=== PATIENT | female | born 1995 | race Hispanic/Latino ===

== ENCOUNTER 2017-02-15 12:19 | Emergency (ER) | payer BC ==
[~2017-02-15] VITALS: Ht 157.5 cm; Wt 83.9 kg
[2017-02-15] MEDS ORDERED: IBUPROFEN 400 MG TAB PO ONE (12:45)
--- NOTE | 2017-02-15 13:09 | Diagnostic Imaging Report ---
PROCEDURE:X-RAY RIGHT ELBOW, COMPLETE COMPARISON:None. INDICATIONS:POST FALL MONDAY. PAIN/SWELLING TO RIGHT ELBOW FINDINGS:Normal mineralization. No acute, displaced fracture or dislocation. No posterior fat pad elevation. No lytic lesions. 7 mm well-circumscribed, nonaggressive appearing sclerotic lesion in the distal right humerus, likely represents a bone island. Joint spaces are well-preserved. Soft tissues are grossly unremarkable. CONCLUSION: No acute abnormalities.. Avtar Martin M.D. Dictated by: Avtar Martin M.D. on 02/15/2017 at 13:17 Electronically approved by: Avtar Martin M.D. on 02/15/2017 at 13:17
[2017-02-15 15:13] VITALS: BP 125/69
== END 2017-02-15 15:17 | disposition home or self-care (01) ==
LOC: ER 12:19
DX: G89.11 Acute pain due to trauma (principal); S50.01XA Contusion of right elbow, initial encounter; W01.0XXA Fall on same level from slipping, tripping and stumbling without subsequent striking against object, initial encounter; Y92.008 Other place in unspecified non-institutional (private) residence as the place of occurrence of the external cause
CPT/HCPCS: 99283

== ENCOUNTER 2018-04-08 22:55 | Emergency (ER) | payer BC ==
[~2018-04-08] VITALS: Ht 157.5 cm; Wt 95.7 kg
--- OUTSIDE RECORDS SUMMARY | 2018-04-08 22:58 | XMS REPORT ---
Author Author [facility] Address Unknown Phone Unavailable Care Team Providers Care Marker Machine Attendant Name Role Phone Aditya TANG Unavailable Unavailable Problems This patient has no known problems. Allergies, Adverse Reactions, Alerts This patient has no known allergies or adverse reactions. Medications This patient has no known medications. Results Test Description Test Time Test Comments Text Results Atomic Results Result Comments ELBOW RIGHT COMPLETE [place] [id number] [place] [id number] Patient Name: PONCHO TATE MR #: [id number] : 1995 Age/Sex: 22/F Req #: [id number] Adm Physician: Ordered by: MONICA FUNK OUTSIDE PRODUCTION INSPECTOR Report #: [id number] Location: ER Room/Bed: Procedure: [id number] DX/ELBOW RIGHT COMPLETE Exam Date: 02/15/17 Exam Time: 1240 REPORT STATUS: Signed PROCEDURE: X-RAY RIGHT ELBOW, COMPLETE COMPARISON: None. INDICATIONS: POST FALL MONDAY. PAIN/SWELLING TO RIGHT ELBOW FINDINGS: Normal mineralization. No acute, displaced fracture or dislocation. No posterior fat pad elevation. No lytic lesions. 7 mm well-circumscribed, nonaggressive appearing sclerotic lesion in the distal right humerus, likely represents a bone island. Joint spaces are well-preserved. Soft tissues are grossly unremarkable. CONCLUSION: No acute abnormalities.. Angelina Martin M.D. Dictated by: Angelina Martin M.D. on 02/15/2017 at 13:17 Electronically approved by: Angelina Martin M.D. on 02/15/2017 at 13:17 Dictated By: ANGELINA MARTIN MD [id number] Transcribed By: PATRIZIA on 02/15/17 1317 COPY TO: MONICA FUNK NP
--- OUTSIDE RECORDS SUMMARY | 2018-04-08 22:58 | XMS REPORT | Clinical Summary ---
Author Author [facility] Address Unknown Phone Unavailable Care Team Providers Care Secondary History Teacher Name Role Phone Latoya Martinez MD PCP Allergies No Known Allergies Medications End Date Status Medication Sig Dispensed Refills Start Date Active albuterol (ACCUNEB) 2.5 0 mg /3 mL (0.083 %) 6 nebulizer solution Active ibuprofen (ADVIL,MOTRIN) TK 1 T PO TID 0 600 MG tablet FOR 10 DAYS 8 PRN Active Problems No known active problems Encounters Care Team Description Date Type Specialty Latoya Martinez MD Well woman exam (Primary Dx); Screen for STD (sexually transmitted disease); Breast pain, left 03/20/2018 Office Visit Internal Medicine Latoya Martinez MD 03/20/2018 Orders Only Internal Medicine after 04/07/2017 Immunizations Name Dates Previously Given Next Due Influenza, Unspecified 12/04/2017 Family History Medical History Relation Name Comments Cancer Maternal Grandfather Diabetes Maternal Grandfather Hypertension Maternal Grandfather Diabetes Maternal Grandmother Hypertension Maternal Grandmother Hyperlipidemia Mother Ovarian cancer Sister Relation Name Status Comments Maternal Grandfather Maternal Grandmother Mother Sister Social History Date Tobacco Use Types Packs/Day Years Used Never Smoker Smokeless Tobacco: Never Used Alcohol Use Drinks/Week oz/Week Comments No Alcohol Habits Answer Date Recorded How often do you have a drink containing alcohol? Never 03/20/2018 How many drinks containing alcohol do you have on Not asked a typical day when you are drinking? How often do you have six or more drinks on one Not asked occasion? Sex Assigned at Date Recorded Not on file Industry Job Start Date Occupation Not on file Not on file Not on file Travel End Travel History Travel Start No recent travel history available. Last Filed Vital Signs Time Taken Vital Sign Reading 03/20/2018 11:29 AM YARD FOREM[employer] Blood Pressure 124/76 03/20/2018 11:29 AM YARD FOREMAN Pulse 77 03/20/2018 11:29 AM YARD FOREMAN Temperature 36.7 C (98.1 F) - Respiratory Rate - 03/20/2018 11:29 AM YARD FOREMAN Oxygen Saturation 96% - Inhaled Oxygen - Concentration 03/20/2018 11:29 AM YARD FOREMAN Weight 95.7 kg (211 lb) 03/20/2018 11:29 AM YARD FOREMAN Height 157.5 cm (5' 2") 03/20/2018 11:29 AM YARD FOREMAN Body Mass Index 38.59 Plan of Treatment Health Maintenance Due Date Last Done Comments CHLAMYDIA SCREENING 2010 CERVICAL CANCER SCREENING 2015 INFLUENZA VACCINE Completed 12/04/2017 Procedures Comments Procedure Name Priority Date/Time Associated Diagnosis CHLAMYDIA/N. GONORRHOEAE Routine 04/02/2018 RNA, TMA 11:19 AM YARD FOREM[employer] RPR SCREEN Routine 04/02/2018 Screen for STD (sexually 11:19 AM YARD FOREMAN transmitted disease) THYROID STIMULATING Routine 04/02/2018 Well woman exam HORMONE 11:19 AM YARD FOREMAN HIV 1/2 ANTIGEN/ANTIBODY, Routine 04/02/2018 Screen for STD (sexually FOURTH GENERATION W/RFL 11:19 AM YARD FOREMAN transmitted disease) HEPATITIS B SURFACE Routine 04/02/2018 Screen for STD (sexually ANTIGEN 11:19 AM YARD FOREMAN transmitted disease) HEPATITIS C ANTIBODY Routine 04/02/2018 Screen for STD (sexually 11:19 AM YARD FOREMAN transmitted disease) URINALYSIS, COMPLETE, Routine 04/02/2018 Well woman exam WITH REFLEX TO CULTURE 11:19 AM YARD FOREMAN COMPREHENSIVE METABOLIC Routine 04/02/2018 Well woman exam PANEL 11:19 AM YARD FOREMAN CBC WITH PLATELET AND Routine 04/02/2018 Well woman exam DIFFERENTIAL 11:19 AM YARD FOREMAN LIPID PANEL Routine 04/02/2018 Well woman exam 11:19 AM YARD FOREMAN [facility] FPGS PAP Routine 03/20/2018 12:05 PM YARD FOREMAN after 04/07/2017 Results * URINALYSIS, COMPLETE, WITH REFLEX TO CULTURE (04/02/2018 11:19 AM YARD FOREMAN) Color, UA YELLOW YELLOW [facility] [place] Appearance CLEAR CLEAR [facility] [place] Specific gravity, urine 1.023 1.001 - 1.035 [facility] [place] pH, urine < OR=5.0 5.0 - 8.0 [facility] [place] Glucose, urine NEGATIVE NEGATIVE [facility] [place] Bilirubin, UA NEGATIVE NEGATIVE [facility] [place] Ketones, UA NEGATIVE NEGATIVE [facility] [place] Occult blood, urine TRACE (A) NEGATIVE [facility] [place] Protein, UA NEGATIVE NEGATIVE [facility] [place] Nitrite, UA NEGATIVE NEGATIVE [facility] [place] Leukocyte esterase, UA NEGATIVE NEGATIVE [facility] [place] WBC, UA 0-5 < OR=5 /HPF [facility] [place] RBC, UA NONE SEEN < OR=2 /HPF [facility] [place] Squamous epithelial 0-5 < OR=5 /HPF [facility] cells, UA [place] Bacteria, UA NONE SEEN NONE SEEN /HPF [facility] [place] Hyaline casts, UA NONE SEEN NONE SEEN /LPF [facility] [place] Reflex NO CULTURE INDICATED [facility] [place] Narrative Performed At FASTING:YES [facility] FASTING: YES Resulting Agency Comment Performing Organization Information: Site ID: [id number] [facility]: [facility] Address: [address] [place] [phone] Director: Krystina Pathak Performing Organization Address [facility] Facilitycode Phone Number [facility] [address] [address] * CHLAMYDIA/N. GONORRHOEAE RNA, [facility] (04/02/2018 11:19 AM YARD FOREMAN) Chlamydia trachomatis NOT DETECTED NOT DETECTED [facility] Neisseria gonorrhoeae NOT DETECTED NOT DETECTED [facility] RNA, [facility] (Always message) Comment: [place] This test was performed using [place] the APTIMA COMBO2 Assay ([employer] The analytical performance characteristics of this assay, when used to test SurePath specimens have been determined by [facility]. Narrative Performed At FASTING:YES [facility] FASTING: YES Resulting Agency Comment Performing Organization Information: Site ID: [id number] [facility]: [facility] Address: [address] [place] [phone] Director: Krystina Pathak Performing Organization Address City/[facility] Facilitycode Phone Number [facility] [address] [address] * HIV 1/2 ANTIGEN/ANTIBODY, FOURTH GENERATION W/RFL (04/02/2018 11:19 AM YARD FOREMAN) HIV AG/AB 4th gen NON-REACTIVE NON-REACTIVE [facility] Comment: [place] HIV-1 antigen and HIV-1/HIV-2 antibodies were not detected. There is no laboratory evidence of HIV infection. PLEASE NOTE: This information has been disclosed to you from records whose confidentiality may be protected by state law.If your state requires such protection, then the state law prohibits you from making any further disclosure of the information without the specific written consent of the person to whom it pertains, or as otherwise permitted by law. A general authorization for the release of medical or other information is NOT sufficient for this purpose. For additional information please refer to http://education.KitNipBox.BoundaryMedical/faq/KER300 (This link is being provided for informational/ educational purposes only.) The performance of this assay has not been clinically validated in patients less than 2 years old. Narrative Performed At FASTING:YES [facility] FASTING: YES Resulting Agency Comment Performing Organization Information: Site ID: [id number] [facility]: [facility] Address: [address] [place], [place] [id number] Director: Krystina Pathak Performing Organization Address [facility] Facilitycode Phone Number [facility] [place] [phone] * Hepatitis C antibody (04/02/2018 11:19 AM YARD FOREMAN) Hepatitis C Ab NON-REACTIVE NON-REACTIVE [facility] Signal/cutoff 0.01 <1.00 [facility] [place] Specimen Blood Narrative Performed At FASTING:YES [facility] FASTING: YES Resulting Agency Comment Performing Organization Information: Site ID: [id number] Name: [facility] Address: [address] [place] [phone] Director: Krystina Pathak Performing Organization Address [facility] Facilitycode [place] [address] * RPR screen (04/02/2018 11:19 AM YARD FOREMAN) RPR (monitor) w/refl NON-REACTIVE NON-REACTIVE [facility] Specimen Blood Narrative Performed At FASTING:YES [facility] FASTING: YES Resulting Agency Comment Performing Organization Information: Site ID: [id number] [facility]: [facility] Address: [address] [place] [phone] Director: Krystina Pathak Performing Organization Address City/[facility] Facilitycoks Phone Number [facility] [place] [address] [place] [address] * Hepatitis B surface antigen (04/02/2018 11:19 AM YARD FOREMAN) Hepatitis B surface Ag NON-REACTIVE NON-REACTIVE [facility] [place] Specimen Blood Narrative Performed At FASTING:YES [facility] FASTING: YES Resulting Agency Comment Performing Organization Information: Site ID: [id number] [facility]: [facility] Address: [address] [place] [phone] Director: Krystina Pathak Performing Organization Address [facility] Facilitycoks Phone Number [facility] [place] [address] [place] [address] * CBC with platelet and differential (04/02/2018 11:19 AM YARD FOREMAN) WBC 6.4 3.8 - 10.8 Thousand/uL [facility] [place] RBC 4.71 3.80 - 5.10 Million/uL [facility] [place] HGB 12.8 11.7 - 15.5 g/dL [facility] [place] HCT 39.1 35.0 - 45.0 % [facility] [place] MCV 83.0 80.0 - 100.0 fL [facility] [place] MCH 27.2 27.0 - 33.0 pg [place] MCHC 32.7 32.0 - 36.0 g/dL [facility] [place] RDW 14.1 11.0 - 15.0 % [facility] [place] Platelet count 313 140 - 400 Thousand/uL [facility] [place] MPV 10.8 7.5 - 12.5 fL [facility] [place] Neutrophils, absolute 3,904 1,500 - 7,800 cells/uL [facility] [place] Lymphocytes, absolute 1,958 850 - 3,900 cells/uL [facility] [place] Monocytes, absolute 365 200 - 950 cells/uL [facility] [place] Eosinophils, absolute 141 15 - 500 cells/uL [facility] [place] Basophils, absolute 32 0 - 200 cells/uL [facility] [place] Neutrophils 61 % [facility] [place] Lymphocytes 30.6 % [facility] [place] Monocytes 5.7 % [facility] [place] Eosinophils 2.2 % [facility] [place] Basophils + RC 0.5 % [facility] [place] Specimen Blood Narrative Performed At FASTING:YES [facility] FASTING: YES Resulting Agency Comment Performing Organization Information: Site ID: [id number] Name: [facility] Lab Address: [address] [place] [phone] Director: Krystina Pathak Performing Organization Address [facility] [place] [address] * Thyroid stimulating hormone (04/02/2018 11:19 AM YARD FOREMAN) TSH 0.78 mIU/L [place] Comment: [place] Reference Range > or=20 Years0.40-4.50 Ranges First trimester0.26-2.66 Second trimester 0.55-2.73 Third trimester0.43-2.91 Specimen Blood Narrative Performed At FASTING:YES [facility] FASTING: YES Resulting Agency Comment Performing Organization Information: Site ID: [facility] Name: [facility] Address: [address] [place] [phone] Director: Krystina Pathak Performing Organization Address [facility] [place] [address] * Lipid panel (04/02/2018 11:19 AM YARD FOREMAN) Cholesterol, total 138 <200 mg/dL [facility] HDL cholesterol 33 (L) >50 mg/dL [facility] [place] Triglycerides 85 <150 mg/dL [facility] [place] LDL cholesterol 87 mg/dL (calc) [place] calculated Comment: [place] Reference range: <100 Desirable range <100 mg/dL for primary prevention; <70 mg/dL for patients with CHD or diabetic patients with > or=2 CHD risk factors. LDL-C is now calculated using the Enrico calculation, which is a validated novel method providing better accuracy than the Friedewald equation in the estimation of LDL-C. Jonathan SS et al. JEAN. 2013;310(19): 8075-9270 (http://education.crealytics.BoundaryMedical/faq/VVX259) Cholesterol/HDL ratio 4.2 <5.0 (calc) [place] Non-HDL cholesterol 105 <130 mg/dL (calc) [place] Comment: [place] For patients with diabetes plus 1 major ASCVD risk factor, treating to a non-HDL-C goal of <100 mg/dL (LDL-C of <70 mg/dL) is considered a therapeutic option. Specimen Blood Narrative Performed At FASTING:YES [facility] FASTING: YES Resulting Agency Comment Performing Organization Information: Site ID: [id number] [facility]: [facility] Address: [address] [place] [phone] Director: Krystina Pathak Performing Organization Address City/State/Zipcode Phone Number [address] [address] * Comprehensive metabolic panel (04/02/2018 11:19 AM YARD FOREMAN) Glucose 83 65 - 99 mg/dL [place] Comment: [place] Fasting reference interval BUN, whole blood 12 7 - 25 mg/dL [facility] [place] Creatinine 0.70 0.50 - 1.10 mg/dL [place] EGFR Non-Afr. Nigerien 121 > OR=60 mL/min/1.73m2 [place] EGFR 141 > OR=60 mL/min/1.73m2 [facility] [place] BUN/creatinine ratio NOT APPLICABLE 6 - 22 (calc) [place] Sodium 139 135 - 146 mmol/L [facility] [place] Potassium 4.2 3.5 - 5.3 mmol/L [facility] [place] Chloride 104 98 - 110 mmol/L [facility] [place] CO2 26 20 - 32 mmol/L [facility] [place] Calcium 9.5 8.6 - 10.2 mg/dL [facility] [place] Protein 7.0 6.1 - 8.1 g/dL [facility] [place] Albumin, S 4.5 3.6 - 5.1 g/dL [facility] [place] Globulin, total 2.5 1.9 - 3.7 g/dL (calc) [place] Albumin/globulin ratio 1.8 1.0 - 2.5 (calc) [place] Total bilirubin 0.7 0.2 - 1.2 mg/dL [facility] [place] Alkaline phosphatase 73 33 - 115 U/L [facility] [place] AST 14 10 - 30 U/L [facility] [place] ALT 15 6 - 29 U/L [place] Specimen Blood Narrative Performed At FASTING:YES [facility] FASTING: YES Resulting Agency Comment Performing Organization Information: Site ID: [id number] [facility]: [facility] Address: [address] [place] [phone] Director: Krystina Pathak Performing Organization Address [facility] Facilitycoks Phone Number [facility] [place] [address] [place] [address] * [facility] FPGS PAP (03/20/2018 12:05 PM YARD FOREMAN) Clinical information None given [facility] [place] Date of last menstrual NONE GIVEN [facility] period [place] Prev. pap: NONE GIVEN [facility] [place] Prev. bx: NONE GIVEN [facility] [place] Source None given [facility] [place] Statement of adequacy Comment: [facility] Satisfactory for evaluation. [place] Endocervical/transformation zone component present. Age and/or menstrual status not provided Interpretation/result: Comment: Negative for [place] intraepithelial lesion or [place] malignancy. Comment Comment: [place] This Pap test has been [place] evaluated with computer assisted technology. Radio Communications Superintendent Comment: [place] [facility], CT(ASCP) [place] CT screening location: [place] [address] Review die try out worker Comment: [place] PMT, CT(ASCP) [place] screening location: [place] [address] Comment Comment: [place] EXPLANATORY NOTE: [place] The Pap is a screening test for cervical cancer. It is not a diagnostic test and is subject to false negative and false positive results. It is most reliable when a satisfactory sample, regularly obtained, is submitted with relevant clinical findings and history, and when the Pap result is evaluated along with historic and current clinical information. Narrative Performed At FASTING: UNKNOWN [facility] Resulting Agency Comment Performing Organization Information: Site ID: [id number] [facility]: [facility] Address: [address] [place] [phone] Director: Krystina Pathak Performing Organization Address [facility] Facility[facility] Phone Number [facility] [place] [address] [place] [address] after 04/07/2017 Insurance Payer Benefit Subscriber ID Type Phone Address Plan / Group MELBA GRANADOS xxxxxxxxxxxxxxx PPO BLUE CROSS Advance Directives Patient has advance care planning documents on file. For more information, princess hugo contact: Irvin Vann [address] [place] [address]
--- OUTSIDE RECORDS SUMMARY | 2018-04-08 22:58 | XMS REPORT | Clinical Summary ---
Author Author [facility] Address Unknown Phone Unavailable Care Team Providers Care Master Fire Control Technician Name Role Phone Sharpless PCP Allergies No Known Allergies Medications End Date Status Medication Sig Dispensed Refills Start Date Active albuterol HFA (VENTOLIN Inhale 1 puff 0 HFA) 90 mcg/actuation by mouth via inhaler inhaler every 6 (six) hours as needed for Wheezing. Active Problems Not on file Social History Date Tobacco Use Types Packs/Day Years Used Never Smoker Alcohol Use Drinks/Week oz/Week Comments No Sex Assigned at Date Recorded Not on file Industry Job Start Date Occupation Not on file Not on file Not on file Travel End Travel History Travel Start No recent travel history available. Last Filed Vital Signs Not on file Plan of Treatment Not on file Results Not on fileafter 04/07/2017 Insurance Payer Benefit Subscriber ID Type Phone Address Plan / Group BLUE CROSS/BLUE SHIELD BCBS PPO xxxxxxxxxxxx PPO [phone] [id number] [place] [address] CHOICE
[2018-04-09 00:46] LABS: BILIRUBIN,URINE NEGATIVE (NEGATIVE); CLARITY,URINE CLEAR (CLEAR); COLOR,URINE YELLOW (YELLOW); KETONES,URINE TRACE (NEGATIVE); LEUKOCYTE ESTERASE ,URINE NEGATIVE (NEGATIVE); NITRITE,URINE NEGATIVE (NEGATIVE); PROTEIN,URINE DIPSTICK NEGATIVE (NEGATIVE); URINE UROBILINOGEN 0.2 mg/dL (0.2 - 1)
[2018-04-09 00:48] LABS: BACTERIA,URINE FEW /HPF; CALCIUM OXALATE CRYSTALS,UR MANY (FEW); EPITHELIAL CELLS,URINE MANY /LPF; MUCUS,URINE MANY (RARE); RBC,URINE 0-5 /HPF (0-5); WBC,URINE (MAN) 0-5 /HPF (0-5)
[2018-04-09 00:52] LABS: PREGNANCY TEST, URINE NEGATIVE (NEGATIVE)
[2018-04-09 01:55] LABS: BASOPHILS % 0.3 % (0.0-1.0); EOSINOPHILS # (AUTO) 0.1 (0.0-0.4); EOSINOPHILS % 1.9 % (0.0-6.0); HEMATOCRIT 35.6 % (34.2-44.1); HEMOGLOBIN 12.4 g/dL (12.0-16.0); LYMPHOCYTES # (AUTO) 1.1 (1.0-3.2); LYMPHOCYTES % 17.6 % (18.0-39.1); MEAN CORPUSCULAR HEMOGLOBIN 28.5 pg (28-32); MEAN CORPUSCULAR HGB CONC 34.8 g/dL (31-35); MEAN CORPUSCULAR VOLUME 81.8 fL (81-99); MONOCYTES # (AUTO) 0.6 (0.2-0.8); MONOCYTES % 8.7 % (4.4-11.3); NEUTROPHILS # (AUTO) 4.6 (2.1-6.9); NEUTROPHILS % 71.3 % (38.7-80.0); PLATELET COUNT 263 x10e3/uL (140-360); RED BLOOD COUNT 4.35 x10e6/uL (3.6-5.1)
[2018-04-09 02:11] LABS: ALANINE AMINOTRANSFERASE 24 IU/L (0-55); ALBUMIN/GLOBULIN RATIO 1.4 (0.8-2.0); ALKALINE PHOSPHATASE 73 IU/L (40-150); ANION GAP 15.6 mmol/L (8-16); BLOOD UREA NITROGEN 11 mg/dL (7-26); BUN/CREATININE RATIO 14 (6-25); CALCIUM 9.1 mg/dL (8.4-10.2); CARBON DIOXIDE 23 mmol/L (22-29); CHLORIDE 107 mmol/L (98-107); CREATININE, SERUM 0.77 mg/dL (0.57-1.11); EST GLOMERULAR FILTRATION RATE > 60 ML/MIN (60-); GLUCOSE 96 mg/dL (74-118); POTASSIUM 3.6 mmol/L (3.5-5.1); SODIUM 142 mmol/L (136-145)
[2018-04-09] MEDS ORDERED: KETOROLAC TROMETHAMINE 30 MG/ML VIAL IV STA (02:39)
--- NOTE | 2018-04-09 03:51 | Diagnostic Imaging Report ---
EXAM: CT ABDOMEN/PELVIS W DATE: 04/09/2018 1:45 AM INDICATION: Right-sided pain after falling COMPARISON: None TECHNIQUE: The abdomen and pelvis were scanned using a multidetector helical scanner. Coronal and sagittal reformations were obtained. CT low dose techniques were utilized, as applicable. IV Contrast: 100 ml Isovue 300/370 FINDINGS: LOWER THORAX: No consolidations LIVER/BILIARY: No masses. No ductal dilatation. GALLBLADDER: Unremarkable SPLEEN: Unremarkable PANCREAS: Unremarkable ADRENALS: No nodules KIDNEYS: No suspicious renal masses. No hydronephrosis. GI TRACT: No wall thickening or evidence of obstruction. Normal appendix VESSELS: Unremarkable PERITONEUM/RETROPERITONEUM: No free air or fluid LYMPH NODES: No lymphadenopathy REPRODUCTIVE ORGANS/BLADDER: Unremarkable SOFT TISSUES: Unremarkable BONES: No suspicious bone lesions. IMPRESSION: No acute abnormality. Signed by: Dr Katerina Alfonso MD on 04/09/2018 3:48 AM
== END 2018-04-09 05:15 | disposition home or self-care (01) ==
LOC: ER 22:55
DX: R10.31 Right lower quadrant pain (principal); R11.2 Nausea with vomiting, unspecified; R19.7 Diarrhea, unspecified; S30.1XXA Contusion of abdominal wall, initial encounter; W01.198A Fall on same level from slipping, tripping and stumbling with subsequent striking against other object, initial encounter; Y92.008 Other place in unspecified non-institutional (private) residence as the place of occurrence of the external cause; J45.909 Unspecified asthma, uncomplicated
CPT/HCPCS: 36415; 74177; 80053; 81001; 81025; 85025; 99283